=== PATIENT | female | born 1950 | race Caucasian/White ===

== ENCOUNTER 2018-05-26 09:04 | Outpatient (CLI) | payer OTHER ==
[~2018-05-26 09:04] MED LIST: KETO10TA2 PO; LEVSIN/SL0.125 MG PO; PROTONIX40 MG PO; ZANTAC300 MG PO
== END 2018-05-26 09:10 | disposition home or self-care (01) ==
LOC: LAB 09:04
DX: R31.0 Gross hematuria (principal); Z51.81 Encounter for therapeutic drug level monitoring

== ENCOUNTER 2018-05-27 07:22 | Outpatient (CLI) | payer OTHER | END 2018-05-27 08:51 | disposition home or self-care (01) | LOC: TOM 07:22 | DX: R31.0 Gross hematuria (principal) | CPT/HCPCS: 74178; Q9965 ==

== ENCOUNTER 2018-05-29 07:27 | Emergency (ER) | payer OTHER ==
[~2018-05-29] VITALS: Ht 162.6 cm; Wt 59.0 kg
[2018-05-29] MEDS ORDERED: LEVOXYL75 MCG PO (07:43)
== END 2018-05-29 13:41 | disposition home or self-care (01) ==
LOC: ER 07:27
DX: R59.0 Localized enlarged lymph nodes (principal); M54.2 Cervicalgia